=== PATIENT | female | born 1985 | race Caucasian/White ===

== ENCOUNTER → 2020-12-29 08:52 | Outpatient (CLI) | payer BC, SELFPAY ==
--- NOTE | ~2020-12-29 | MMUS_ITS ---
EXAMINATION: MM diagnostic sangita BI w jerad, US breast LT complete HISTORY: Palpable left breast abnormality TECHNIQUE: Additional 3-D tomosynthesis images of the breasts were performed and synthetic 2-D images were generated. CAD analysis was submitted and interpreted. High resolution complete left breast ult rasound was performed. COMPARISON: 08/17/2016 BREAST PARENCHYMAL COMPOSITION: Breast composed of scattered areas of fibroglandular density. FINDINGS: MAMMOGRAPHIC FINDINGS: There are no suspicious masses, calcifications or architectural distortion in either breast to sugges t malignancy. ULTRASOUND: Complete left breast ultrasound: Normal heterogeneous echotexture without focal solid or or cystic ma ss. IMPRESSION: 1. No evidence for malignancy in either breast. 2. Routine yearly screening mammogram and regular clinical breast examination are recommended. BI-RADS Category 1: Negative Reviewed, dictated and finalized at location A. IMPRESSION: 1. No evidence for malignancy in either breast. 2. Routine yearly screening mammogram and regular clinical breast examination a re recommended. BI-RADS Category 1: Negative
== END ==
PROVIDERS: PCP Family Medicine; Visit Provider Obstetrics & Gynecology
DX: R92.8 Other abnormal and inconclusive findings on diagnostic imaging of breast (principal)
CPT/HCPCS: 76641; 77062; 77066; G0279

== ENCOUNTER 2024-01-24 15:10 | Outpatient (CLI) | payer BC, SELFPAY ==
--- NOTE | ~2024-01-24 | MM_ITS ---
EXAMINATION: MM screening sangita BI w jerad HISTORY: Screening mammogram TECHNIQUE: Craniocaudal and mediolateral oblique 3-D tomosynthesis images were obtained and synthetic 2-D images were generated. CAD analysis was submitted and interpreted. COMPARISON: 12/29/2020, 08/17/2016 BREAST PARENCHYMAL COMPOSITION:Not Dense. There are scattered areas of fibroglandular density. FINDINGS: Stable low-density circumscribed round mass at the outer left breast. No suspicious mass, c alcification, or architectural distortion are identified in either breast to suggest malignancy. Ther e has been no suspicious interval change. IMPRESSION: No mammographic evidence of malignancy. Recommend routine screening mammography in one year. BI-RADS Category 2: Benign finding(s). Reviewed, dictated and finalized at location .
== END 2024-01-24 15:11 ==
LOC: MICIMG 15:11
PROVIDERS: PCP Family Medicine; Visit Provider Obstetrics & Gynecology
DX: Z12.31 Encounter for screening mammogram for malignant neoplasm of breast (principal)
CPT/HCPCS: 77063; 77067

== ENCOUNTER 2024-02-29 12:10 | Outpatient (CLI) | payer BC, SELFPAY ==
--- NOTE | ~2024-02-29 | XR_ITS ---
XR abdomen/kub 1V Ordering provider: Kaylah Martin PA-C History: . Ureteral Stone, KIMBERLY . Comparison: None. FINDINGS: BOWEL: Nonobstructive bowel gas pattern. ORGANOMEGALY: None. SIGNIFICANT PATHOLOGIC CALCIFICATIONS: Left kidney calcification suggestive of stones. Stone in the l eft upper ureter is also noted. Stone in the right side of the pelvis is seen. On is also seen in the right kidney lower pole. OTHER: No free air is seen under the diaphragm. Fecal material seen in the colon suggestive of constipation. IMPRESSION: NO ACUTE ABDOMINAL FINDINGS. Bilateral kidney stones. Stone in the left upper ureter and the right lower ureter. Reviewed, dictated and finalized at location A. IMPRESSION: NO ACUTE ABDOMINAL FINDINGS. Bilateral kidney stones. Stone in the left upper ureter and the right lower ure ter.
== END 2024-02-29 12:11 | disposition home or self-care (01) ==
PROVIDERS: PCP Family Medicine; Visit Provider Physician Assistant
DX: N20.1 Calculus of ureter (principal)
CPT/HCPCS: 74018

== ENCOUNTER 2024-03-01 00:04 | Day surgery (SDC) | payer BC, SELFPAY ==
[2024-02-29 15:46] VITALS: BMI 40.3
--- NOTE | 2024-02-29 15:48 | PC.NURSE ---
Report to the Outpatient Waiting Room, entrance under the green pavilion located off [facility], at time _1000_ on date _[id number]_. Planned Procedure Time: _1200_. Time changes happen often and if your time is changed the preop area will call you the afternoon before. - You and your visitor will be asked to self-screen and do not enter if you have any COVID symptoms. - A mask is optional within the hospital at this time. Patients may have clear liquids (water, carbonated beverages, clear teas, apple juice) until 3 hours prior to surgery with a maximum of 20 ounces. - No food from midnight until time of surgery Take the following medications with a SIP of water the morning of surgery: Levothyroxine and if needed take a pain pill but don't follow it with Miralax. DO NOT STOP ANY OF YOUR OTHER PRESCRIPTION MEDICATIONS PRIOR TO SURGERY ?EXCEPT THE FOLLOWING Medications to discontinue per physician None Date to take last dose Please no make-up, nail japanese, hairspray, perfume, deodorant, or body powder the day of surgery. No jewelry (including any body piercings) or valuables the day of surgery, leave them at home. Please take a shower or bath the night before, or the morning of, surgery with an antibacterial soap. Wear comfortable, loose fitting clothing. - Jewelry must be removed prior to entering the operating room. Rings and piercings that are not removed may be cut off. - The hospital will not accept responsibility for valuables. - Please leave all valuables, including medications, at home the day of surgery. If you are going home after surgery, a licensed oil truck driver must drive you home. - NO public transportation without another adult if you receive anesthesia. - We recommend that an adult stay with you for 24 hours following discharge. - We also recommend that you do not drive, make important decision, drink alcoholic beverages, or take any drugs that were not prescribed by your health care provider for at least 24 hours after your discharge time. Follow any additional instructions given to you from your surgeon. If you or anyone in your household have experienced Covid symptoms in the past week, please notify your surgeon or the nurse liaison at the phone number below for possible testing. Telephone instructions given to ___Carrie___and asked if any additional questions and then verbalized understanding. Patient advised to call surgeon office or pre surgery nurse liaison [phone] if any additional questions.
[2024-03-01] VITALS (8 sets, daily range): BP systolic 110–136; BP diastolic 71–95; PULSE 61–80; RESP 11–18; TEMP 36.4–36.7; O2SAT 100
--- NOTE | ~2024-03-01 | XR_ITS ---
EXAMINATION: XR stent kub - surgery DATE: 03/01/2024 12:59 INDICATION: Bilateral ureteral stones. TECHNIQUE: 4 intraoperative spot fluoroscopic views of the abdomen and pelvis were obtained. I was no t present. Fluoroscopy exposure time was 47 seconds. COMPARISON: Abdomen radiograph 02/29/2024 FINDINGS: The final images demonstrate bilateral internal ureteral stents in expected positions. Ther e are 4 stones in left kidney measuring up to 3 mm. IMPRESSION: 1. Bilateral internal ureteral stents in expected positions. 2. Left kidney stones. Reviewed, dictated and finalized at location A.
--- NOTE | 2024-03-01 06:43 | WPDHPUPDATE1 ---
History and Physical Update Update Date/Time: 03/01/24 06:43 History and Physical has been reviewed, including an updated exam of the patient. There are NO changes in the patient's condition. Risks, benefits, and alternatives have been discussed and questions answered. Patient agrees to proceed with procedure.
[2024-03-01] MEDS: LACTATED RINGERS 1,000 ML 30 ML IV CONT ×2 (10:45→13:34)
--- NOTE | 2024-03-01 11:07 | WPDANESEPPF ---
Anes - Initial Pre Proc Eval Procedure: Operation Date: 03/01/24 12:00 Proposed Procedures p Cystoscopy, Bilateral Ureteroscopy, Possible Bilateral Retrograde Pyelogram, Possible Bilateral Stone Extraction, Bilateral Stent Placement, Possible Holmium Laser Procedure - Shlomo Berman MD Date/Time: 03/01/24 11:07 Surgeon: Shlomo Berman MD Pre Op Diagnosis: bilat ureteral stones Patient Data Age: 39 Gender: F Height: 1.6 m Weight: 103.2 kg Last Vital Signs Temp 36.4 C L 03/01/24 10:30 Pulse 70 03/01/24 10:30 Resp 14 03/01/24 10:30 BP 125/94 H 03/01/24 10:30 Pulse Ox 100 03/01/24 10:30 O2 Del Method Room Air 03/01/24 10:30 Allergies Allergy/AdvReac Type Severity Reaction Status Date / Time No Known Allergies Allergy Verified 03/01/24 10:55 Home Medications Medication Instructions Recorded Confirmed Type Lactobacillus rhamnosus-Bifidobac. 1 cap PO DAILY 02/29/24 02/29/24 History animalis 3 billion cell capsule ([employer]) hydrocodone 5 mg-acetaminophen 325 1 tablet PO Q4H PRN Pain 02/29/24 02/29/24 History mg tablet levothyroxine 100 mcg tablet 100 mcg PO DAILY 02/29/24 03/01/24 History omeprazole 40 mg capsule,delayed 40 mg PO DAILY 02/29/24 02/29/24 History release ondansetron HCl 4 mg tablet 4 mg PO Q4H PRN Nausea And Vomiting 02/29/24 02/29/24 History polyethylene glycol 3350 17 17 g PO DAILY PRN Constipation 02/29/24 02/29/24 History gram/dose oral powder (Miralax) sumatriptan succinate 50 mg tablet 50 mg PO DAILY PRN Migraine 02/29/24 02/29/24 History Headache tamsulosin 0.4 mg capsule 0.4 mg PO DAILY 02/29/24 02/29/24 History tramadol 50 mg tablet 50 mg PO Q6H PRN Pain 02/29/24 02/29/24 History Patient hx anesthesia problems: none Family hx anesthesia problems: none Results Review: All pre-operative results and documents have been reviewed as part of the pre-operative evaluation. [facility] Past Medical History Medical History (Updated 03/01/24 @ 11:07 by Broderick Kahn MD) Asthma Morbid obesity Surgical History Surgical History (Updated 03/01/24 @ 11:08 by Broderick Kahn MD) H/O: hysterectomy Social History Social History Years smoked: 7 Smoking status: Former smoker Tobacco type: cigarettes Smoking end date: 02/28/05 Living arrangements: with family Spiritual care concerns: No Anes - Eval Final PreProcedure Day of Procedure 03/01/24 11:07 Patient weight: morbidly obese Heart: regular rate and rhythm Lungs: clear to auscultation Airway: Mallampati scale class II Neurological: alert and oriented Last oral intake: >/= 8 hours ASA classification: III Emergent: no Anesthetic plan: proceed Anesthesia type and monitoring: general LMA and standard monitoring Results Review: All pre-operative results and documents have been reviewed as part of the pre-operative evaluation. Informed Consent: The patient's anesthetic plan and its attendant risks and benefits were discussed with the patient/family/POA. Questions were solicited and answers provided to the satisfaction of the patient/family/POA.
[2024-03-01] MEDS: ceFAZolin 2 GM/D5W 50 ML 2 GM/50 ML BAG IVPB (11:57)
[2024-03-01] MEDS: LIDOCAINE HCL 2% GEL UROJET 10 ML PKG MUCOUS MEM (12:26)
--- NOTE | 2024-03-01 12:57 | W.PM.PROC2 ---
Procedure Note - Detailed Date of Procedure 03/01/24 Pre-op Diagnosis blat ureteral stones Post-op Diagnosis Same Procedure Performed Cystoscopy, bilateral ureteroscopy with laser lithotripsy stone extraction and stent placement Surgeon Shlomo Berman MD Anesthesia General Description of Procedure Patient is brought to the operative suite where she is prepped draped in routine sterile fashion while in dorsal lithotomy position after the uneventful induction of a general LMA anesthetic. Cystoscopy was undertaken with a 19 F rigid cystoscope. Bladder neck and urethra endoscopically normal. Bladder mucosa is normal. There was no intravesical foreign body neoplasm. 0.035 in glidewire was advanced into each renal pelvis. Each distal ureter was dilated with an 8 F 10 F dilator. For her right distal ureteral stone I performed rigid ureteroscopy. I fractured the stone into small pieces and removed all pieces with a 1.9 F disposable stone basket. We used the Santiago laser with a 200 micron fiber. On the left outer performed flexible ureteroscopy through 11 F/ 13 F access sheath for her more proximal stone. It, likewise, was fractured into pieces all of which were extra bilateral 4.8 F ureteral stents were placed. Drains No Pathology Yes
[2024-03-01] MEDS: ONDANSETRON INJ 4 MG/2 ML VIAL IV PUSH (13:14)
[2024-03-01] MEDS: diphenhydrAMINE HCl INJ 50 MG/ML VIAL 12.5 MG IV PUSH (14:18)
[2024-03-01] MEDS: KETOROLAC 30 MG/ML VIAL (*BKC) IV PUSH (14:19)
[2024-03-01] MEDS: SCOPOLAMINE 1 MG PATCH 1 PATCH TRANSDERM (14:19)
[2024-03-01] MEDS: HYOSCYAMINE SULFATE 0.125 MG TABLET PO (14:27)
== END 2024-03-01 15:00 | disposition home or self-care (01) ==
PROVIDERS: PCP Family Medicine; Visit Provider Urology
PROC: (CPT 52352; principal; 2024-03-01 12:00)
DX: N20.1 Calculus of ureter (principal); E66.01 Morbid (severe) obesity due to excess calories; Z68.41 Body mass index [BMI] 40.0-44.9, adult
CPT/HCPCS: 52356; 82365; 88300; A9270; C1769; C1894; C2617; J0690; J1100; J1170; J1200; J1885; J2250; J2405; J2704; J3010; J7120

== ENCOUNTER 2025-03-18 11:42 | Outpatient (CLI) | payer BC, SELFPAY ==
--- NOTE | ~2025-03-18 | XR_ITS ---
EXAM/PROCEDURE: XR abdomen/kub 1V - 03/18/2025 11:51 CDT HISTORY: 40 years old Female with Kidney stone COMPARISON: None available. TECHNIQUE: AP view(s) of the abdomen. FINDINGS: The bowel gas pattern is normal. There is no evidence for obstruction. At least 3 calculi in the mid to lower pole of the left kidney, measuring up to 0.2 cm. No free intraperitoneal air is identified on this supine radiograph. The visualized soft tissue shadows are unremarkable. No gross bony abnormalities are seen. Visualized portions of lung bases are clear. Cholecystectomy clips are seen IMPRESSION: At least 3 calculi in the mid to lower pole of the left kidney, measuring up to 0.2 cm. Reviewed, dictated and finalized at location A.
== END 2025-03-18 11:43 | disposition home or self-care (01) ==
PROVIDERS: PCP Family Medicine; Visit Provider Urology
DX: N20.0 Calculus of kidney (principal); Z90.49 Acquired absence of other specified parts of digestive tract
CPT/HCPCS: 74018